=== PATIENT | male | born 1985 | race Caucasian/White ===

== ENCOUNTER 2019-02-13 17:05 | Outpatient (CLI) | payer BC | END 2019-02-13 17:06 | disposition home or self-care (01) | LOC: CTENTCT 17:05 | PROVIDERS: ATTEND Otolaryngology Plastic Surgery within the Head & Neck | DX: J32.9 Chronic sinusitis, unspecified (principal) | CPT/HCPCS: 70486 ==

== ENCOUNTER 2021-12-21 08:55 | Day surgery (SDC) | payer BC ==
[2021-12-19 13:39] VITALS: BMI 28.2
[2021-12-21] MEDS ORDERED: Oxymetazoline HCl 0.05% (30 ML BOT) ONE ×2 (09:45→11:07)
[2021-12-21] MEDS ORDERED: Lidocaine 1% MPF 2 ML VIAL ONE (09:45)
[2021-12-21] MEDS ORDERED: fentaNYL Citrate/PF 100 MCG/2 ML SYRINGE ONE ×2 (11:00→12:25)
[2021-12-21] MEDS ORDERED: Bacitracin Zinc Ointment 30 gm TUBE ONE (11:00)
[2021-12-21] MEDS ORDERED: Lidocaine 1% (PF) 30 ML VIAL ONE (11:00)
[2021-12-21] MEDS ORDERED: Midazolam HCl 2 mg/2 ml Vial ONE (11:00)
[2021-12-21] MEDS ORDERED: EPINEPHrine 1 MG/ML AMP ONE (11:07)
[2021-12-21] MEDS ORDERED: PROPOFOL 200 MG/20 ML VIAL ONE (11:18)
[2021-12-21] MEDS ORDERED: Dexamethasone 20 MG/5 ML VIAL ONE (11:18)
[2021-12-21] MEDS ORDERED: Ondansetron PF 4 MG/2 ML Vial ONE (11:18)
== END 2021-12-21 13:55 | disposition home or self-care (01) ==
LOC: SDC 08:55
PROVIDERS: ATTEND Otolaryngology Plastic Surgery within the Head & Neck
PROC: 099T8ZZ Drainage of Left Frontal Sinus, Via Natural or Artificial Opening Endoscopic (ICD-10-PCS; principal; 2021-12-21)
PROC: 099W8ZZ Drainage of Right Sphenoid Sinus, Via Natural or Artificial Opening Endoscopic (ICD-10-PCS; principal; 2021-12-21)
PROC: 099X8ZZ Drainage of Left Sphenoid Sinus, Via Natural or Artificial Opening Endoscopic (ICD-10-PCS; principal; 2021-12-21)
PROC: 09TV8ZZ Resection of Left Ethmoid Sinus, Via Natural or Artificial Opening Endoscopic (ICD-10-PCS; principal; 2021-12-21)
PROC: 095L0ZZ Destruction of Nasal Turbinate, Open Approach (ICD-10-PCS; principal; 2021-12-21)
PROC: 099R8ZZ Drainage of Left Maxillary Sinus, Via Natural or Artificial Opening Endoscopic (ICD-10-PCS; principal; 2021-12-21)
PROC: 09SM0ZZ Reposition Nasal Septum, Open Approach (ICD-10-PCS; principal; 2021-12-21)
PROC: 09TU8ZZ Resection of Right Ethmoid Sinus, Via Natural or Artificial Opening Endoscopic (ICD-10-PCS; principal; 2021-12-21)
PROC: 099S8ZZ Drainage of Right Frontal Sinus, Via Natural or Artificial Opening Endoscopic (ICD-10-PCS; principal; 2021-12-21)
PROC: 099Q8ZZ Drainage of Right Maxillary Sinus, Via Natural or Artificial Opening Endoscopic (ICD-10-PCS; principal; 2021-12-21)
DX: J32.9 Chronic sinusitis, unspecified (principal); J34.2 Deviated nasal septum; J34.3 Hypertrophy of nasal turbinates; J34.89 Other specified disorders of nose and nasal sinuses; J45.909 Unspecified asthma, uncomplicated; J35.3 Hypertrophy of tonsils with hypertrophy of adenoids; Z79.899 Other long term (current) drug therapy
CPT/HCPCS: J0171; J1100; J2001; J2250; J2405; J2704